=== PATIENT | male | born 1990 | race Caucasian/White ===

== ENCOUNTER 2016-07-27 01:37 | Emergency (ER) | payer OTHER | END 2016-07-27 03:57 | disposition home or self-care (01) | LOC: ER 01:37 | DX: S42.001A Fracture of unspecified part of right clavicle, initial encounter for closed fracture (principal); F17.210 Nicotine dependence, cigarettes, uncomplicated; Z88.0 Allergy status to penicillin; W07.XXXA Fall from chair, initial encounter | CPT/HCPCS: 96372 ==

== ENCOUNTER → 2016-08-08 | Day surgery (SDC) | payer OTHER | END | disposition home or self-care (01) | LOC: SDC 08:01 | DX: S42.031A Displaced fracture of lateral end of right clavicle, initial encounter for closed fracture (principal); F17.210 Nicotine dependence, cigarettes, uncomplicated; Z88.0 Allergy status to penicillin; Z88.1 Allergy status to other antibiotic agents; Z82.49 Family history of ischemic heart disease and other diseases of the circulatory system; Z98.818 Other dental procedure status; W20.8XXA Other cause of strike by thrown, projected or falling object, initial encounter; Y92.89 Other specified places as the place of occurrence of the external cause | CPT/HCPCS: C1713; J1885; J2270; J2704; J2765 ==